=== PATIENT | female | born 1985 ===

== ENCOUNTER 2022-01-06 12:30 | Inpatient (IN) | payer OTHER ==
[~2022-01-06] VITALS: Ht 162.6 cm; Wt 68.0 kg
[2022-01-14] MEDS ORDERED: INTESTINEX680 M1 PO (09:12)
[2022-01-14] MEDS ORDERED: NORFLEX100MG PO (09:12)
[2022-01-14] MEDS ORDERED: PANTOPRAZOLE SO40 MG PO (09:13)
[2022-01-14] MEDS ORDERED: ULTRACET PO (09:13)
== END 2022-01-14 12:40 | disposition home or self-care (01) | DRG 330 ==
LOC: O/R 01-11 11:47 → SURH 01-11 12:30 → SURG 01-11 23:38
PROVIDERS: ADMIT Surgery; ATTEND Surgery
PROC: 0DBP4ZZ Excision of Rectum, Percutaneous Endoscopic Approach (ICD-10-PCS; 2022-01-11)
PROC: 07BC4ZZ Excision of Pelvis Lymphatic, Percutaneous Endoscopic Approach (ICD-10-PCS; 2022-01-11)
PROC: 0DTN4ZZ Resection of Sigmoid Colon, Percutaneous Endoscopic Approach (ICD-10-PCS; principal; 2022-01-11 19:45)
DX: C18.7 Malignant neoplasm of sigmoid colon (principal); D62 Acute posthemorrhagic anemia; R59.0 Localized enlarged lymph nodes; R19.4 Change in bowel habit; R10.32 Left lower quadrant pain; Z20.822 Contact with and (suspected) exposure to COVID-19